=== PATIENT | male | born 1965 | race Caucasian/White ===

== ENCOUNTER 2016-08-24 15:17 | Emergency (ER) | payer OTHER ==
[~2016-08-24] VITALS: Ht 160 cm; Wt 80.0 kg
[2016-08-24 15:20] VITALS: Ht 160 cm; Wt 80.0 kg
[2016-08-24] MEDS ORDERED: OFLO5DRO46 LEFT EYE (16:44)
--- NOTE | 2016-08-24 17:53 | ERD ---
ER Documentation Chief Complaint Date/Time DATE: 08/24/16 TIME: 17:50 Chief Complaint LEFT EYE REDNESS HPI 50-year-old male patient with a past medical history of chronic left eye partial eye blindness presents to the ED complaining of left-sided eye redness that is itchy that started 2 days ago. States that he does not wear any glasses or contacts. Denies any new onset of visual loss or diplopia. Denies any chest pain, shortness of breath, abdominal pain, nausea, vomiting, headache , weakness, numbness or tingling. States that he had some mucus and pus of his left eye. Reports it was difficult to open his left eye yesterday. States that his vision has not changed since he was young. ROS All systems reviewed and are negative except as per history of present illness. Medications Home Meds Active Scripts Ofloxacin* (Ocuflox*) 0.3%-5 Ml Ophth Drops, 2 DROP LEFT EYE QID for 7 Days, #1 BOTTLE Prov:JAMAR FLORES PA-C 08/24/16 PMhx/Soc Medical and Surgical Hx: pt denies Medical Hx, pt denies Surgical Hx Physical Exam Vitals Vital Signs Date Time Temp Pulse Resp B/P Pulse Ox O2 Delivery O2 Flow Rate FiO2 08/24/16 15:20 98.1 82 18 135/78 99 Physical Exam Const: Joc-dxs-oczxbkxij, well-nourished. In no acute distress. Head: Atraumatic, normocephalic Eyes: Right conjunctiva without injection. Left injected conjunctivae with slight purulent discharge. PERRLA. EOMI ENT: Normal external ear. Ear canal without erythema. Tympanic membrane pearly olivier without effusion or bulging. Nasal canal clear with normal turbinates. Moist oropharynx without tonsillar exudates. Non-erythematous pharynx. Uvula midline. No drooling. No trismus. Neck: No cervical midline tenderness. Full range of motion. No meningismus. No cervical lymphadenopathy. No JVD. Resp: Clear to auscultation bilaterally. No wheezing, rhonchi, rales, or crackles. No accessory muscle use. No retractions. Cardio: Regular rate and rhythm. No murmurs, rubs or gallops. Abd: Soft, non tender, non distended. Normal bowel sounds. No palpable masses. No rebound tenderness. No guarding. Negative McBurney's Point. Negative Noriega's Sign. Skin: Normal skin turgor. No petechiae or rashes Back: No midline tenderness. No CVA tenderness. Ext: No cyanosis, or edema. Distal pulses intact bilaterally. Neur: Awake and alert. Normal gait. Normal coordination. Cranial Nerves II- VII intact. Normal finger to nose. Muscle strength 5/5. Sensation intact. Psych: Normal Mood and Affect Procedures/MDM 50-year-old male patient with no significant past medical history presents to the ED complaining of left eye redness and itchiness. Patient is afebrile nontoxic appearing. Patient has normal vital signs. Patient likely has conjunctivitis. Patient's ocular symptoms have stabilized while they have been evaluated in the department and are appropriate for outpatient work up. Low suspicion for ruptured globe, retinal detachment, periorbital cellulitis, acute angle closure glaucoma, deep space infection, iritis, traumatic hyphema, subconjunctival hemorrhage, corneal abrasion, corneal ulcer, pterygium, hypopyon , blepharitis, hordeolum, chalazion, or other emergent conditions. Strictly instructed patient to follow up with an gusset stitcher within 24 hours. Instructed patient to return to the ED for any worsening symptoms. Patient is hemodynamically stable. Patient's questions were answered. Patient understood and agreed with discharge plan. Discharge medications: Ocuflox Follow up with primary care physician in 1-2 days. Instructed patient to return to the ED sooner for any worsening symptoms. Patient's questions were answered. Patient understood and agreed with discharge plan. Patient discharged stable. Departure Diagnosis: Primary Impression: Conjunctivitis Conjunctivitis type: unspecified Laterality: left Qualified Code: H10.9 - Conjunctivitis of left eye, unspecified conjunctivitis type Condition: Stable Patient Instructions: Conjunctivitis, Non-Specific Referrals: [facility] Usted se nuno hecho un examen mdico de control que le indica que no est en serjio condicin que requiera tratamiento urgente en el Departamento de Emergencia. Un estudio ms profundo y el tratamiento de neely condicin pueden esperar sin ningn riesgo hasta que usted sea atendida/o en el consultorio de neely mdico o serjio cl gretchen. Es responsabilidad suya arreglar serjio fili para el seguimiento del meri. MANEJO DE CONDICIONES NO URGENTES EN EL FUTURO 1) Si usted tiene un mdico de atencin primaria: Usted debera llamar a neely mdico de atencin primaria antes de venir al departamento de emergencia. Despus de las horas de consultorio, neely doctor o neely asociado/a est disponible por telfono. El mdico o enfermero de birdie en el servicio telefnico puede asesorarle por derrick medio para atender el problema, o meri contrario se puede programar serjio fili. 2) Si usted no tiene un mdico de atencin primaria: Llame al mdico o clnica de referencia que aparece abajo vinay las horas de consultorio para hacer serjio fili para que le vean. CLINICAS: [facility] [phone] [address] [facility] [phone] [address] [facility] [phone] [address] [facility]. [facility] [phone] [address] [facility]. [facility] [phone] [address] [facility]. [phone] [address] [facility] () [place] se nuno hecho un examen mdico de control que le indica que no est en serjio condicin que requiera tratamiento urgente en el Departamento de Emergencia. Un estudio ms profundo y el tratamiento de neely condicin pueden esperar sin ningn riesgo hasta que usted sea atendida/o en el consultorio de neely mdico o serjio cl gretchen. Es responsabilidad suya arreglar serjio fili para el seguimiento del meri. MANEJO DE CONDICIONES NO URGENTES EN EL FUTURO 1) Si usted tiene un mdico de atencin primaria: Usted debera llamar a neely mdico de atencin primaria antes de venir al departamento de emergencia. Despus de las horas de consultorio, neely doctor o neely asociado/a est disponible por telfono. El mdico o enfermero de birdie en el servicio telefnico puede asesorarle por derrick medio para atender el problema, o meri contrario se puede programar serjio fili. 2) Si usted no tiene un mdico de atencin primaria: Llame al mdico o condado institucions de referencia que aparece abajo vinay las horas de consultorio para hacer serjio fili para que le vean. SI USTED NO PUEDE PAGAR PARA ED UN MEDICO puede ir a: [facility] [address] [place] [address] [facility] [address] [place] [address] [facility] [address] [place] [address] [facility] [address] [place] [address] [facility] Hours: Mon - Fri 9:00 AM - 5:00 PM Additional Instructions: Seguimiento con un oftalmlogo en 24 horas. Regrese a estas instalaciones si no se mejora chetan esperbamos o chetan le dijimos. JAMAR FLORES PA-C Aug 24, 2016 17:53
== END 2016-08-24 18:00 | disposition home or self-care (01) ==
LOC: FTE 15:17
DX: H10.9 Unspecified conjunctivitis (principal)
CPT/HCPCS: 99283